=== PATIENT | male | born 1960 | race Caucasian/White ===

== ENCOUNTER 2016-12-07 00:13 | Emergency (ER) | payer OTHER, MEDICAID ==
[2016-12-07 00:20] VITALS: RESP 16; TEMP 97.9
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
[2016-12-07 05:17] VITALS: O2SAT 96
[2016-12-07 05:41] VITALS: BP 150/61; PULSE 71
== END 2016-12-07 05:41 | disposition home or self-care (01) ==
LOC: EDUNIT#
DX: S01.112A Laceration without foreign body of left eyelid and periocular area, initial encounter (principal); Y04.0XXA Assault by unarmed brawl or fight, initial encounter; Y92.89 Other specified places as the place of occurrence of the external cause; F10.920 Alcohol use, unspecified with intoxication, uncomplicated; F17.200 Nicotine dependence, unspecified, uncomplicated; Y99.8 Other external cause status; Y93.89 Activity, other specified